=== PATIENT | female | born 1965 ===

== ENCOUNTER 2021-06-06 14:55 | Outpatient (CLI) | payer OTHER | END 2021-06-06 15:00 | disposition home or self-care (01) | LOC: PPH VACUNA 14:55 | PROVIDERS: ATTEND Emergency Medicine Pediatric Emergency Medicine | DX: Z23 Encounter for immunization (principal) ==

== ENCOUNTER 2022-11-22 08:10 | Outpatient (CLI) | payer OTHER | END 2022-11-22 08:37 | disposition home or self-care (01) | LOC: MAMO-SONO 08:10 | PROVIDERS: ATTEND Emergency Medicine Pediatric Emergency Medicine | DX: N64.4 Mastodynia (principal); N94.9 Unspecified condition associated with female genital organs and menstrual cycle ==

== ENCOUNTER 2023-06-06 09:28 | Outpatient (CLI) | payer OTHER | END 2023-06-06 09:31 | disposition home or self-care (01) | LOC: SONOGRAMA 09:28 | DX: K80.00 Calculus of gallbladder with acute cholecystitis without obstruction (principal) ==

== ENCOUNTER 2024-12-23 07:07 | Outpatient (CLI) | payer OTHER | END 2024-12-23 07:15 | disposition home or self-care (01) | LOC: MAMO-SONO 07:07 | DX: N64.4 Mastodynia (principal); N94.9 Unspecified condition associated with female genital organs and menstrual cycle ==

== ENCOUNTER → 2025-01-21 09:57 | Outpatient (CLI) | payer OTHER ==
[~2025-01-21 09:57] MED LIST: AMLODIPINE-OLM1 EAC1 PO; ATORVASTATIN CA40 MG PO; BACTRIM DS TAB1 EACH PO; GLIPIZIDE XL10 MG PO; METFORMIN HCL1000 M2 PO; PEPCID AC20 MG PO; VALSARTAN320 MG PO; VITAMIN D3250 MCG PO
== END | disposition home or self-care (01) ==
LOC: NUCLEAR 09:57
DX: M80.072A Age-related osteoporosis with current pathological fracture, left ankle and foot, initial encounter for fracture (principal)

== ENCOUNTER 2025-01-27 13:26 | Emergency (ER) | payer OTHER ==
[~2025-01-27] VITALS: Ht 157.5 cm; Wt 88.0 kg
[2025-01-27] MEDS ORDERED: GLIPIZIDE XL10 MG PO (14:20)
[2025-01-27] MEDS ORDERED: METFORMIN HCL1000 M2 PO (14:20)
[2025-01-27] MEDS ORDERED: VALSARTAN320 MG PO (14:21)
[2025-01-27] MEDS ORDERED: AMLODIPINE-OLM1 EAC1 PO (14:21)
[2025-01-27] MEDS ORDERED: VITAMIN D3250 MCG PO (14:21)
[2025-01-27] MEDS ORDERED: ATORVASTATIN CA40 MG PO (14:21)
[2025-01-27] MEDS ORDERED: 0.9 % SODIUM CHLORIDE 1,000 ML IV ONE (16:45)
[2025-01-27] MEDS ORDERED: KETOROLAC TROMETHAMINE 30 MG VIAL IV ONE (16:45)
[2025-01-27 17:20] LABS: BASO % 0.6 % (0.1-1.2); EOS # 0.11 (0.04-0.54); EOS % 1.1 % (0.7-7.0); LYMPH # 3.34 (1.18-3.74); LYMPH % 33.2 % (19.3-53.1); MEAN PLATELET VOLUME 8.90 fl (9.4-12.4); MONO # 0.64 (0.24-0.82); MONO % 6.4 % (4.7-12.5); NEUT # 5.88 (1.56-6.13); NEUT % 58.4 % (34.0-71.1); RED CELL DISTRIBUTION WIDTH 12.7 % (11.6-14.4)
[2025-01-27 17:38] LABS: INR 0.96
[2025-01-27 17:54] LABS: ALT/SGPT 25.0 U/L (12-78); AST/SGOT 20.0 U/L (15-37); BILIRUBIN TOTAL 0.57 mg/dL (0.3-1.2); BUN CREA RATIO 11.0 (7.0-25.0); CREATININE SERUM 0.91 mg/dL (0.55-1.02); GFR 62.85; GLOBULINA 4.3 G/DL (2.4-3.5); GLUCOSE FASTING 109.0 mg/dL (65-100); OSMOLALITY SERUM 281.0 MOSM/KG (275-295)
[2025-01-27 18:13] LABS: URINE APPEARANCE Clear; URINE BILIRRUBIN Negative (NEGATIVE); URINE BLOOD Negative; URINE COLOR Yellow; URINE GLUCOSE Negative (NEGATIVE); URINE KETONE Negative (NEGATIVE); URINE LEUKOCYTE Small; URINE NITRATE Negative; URINE PROTEIN 30 (NEGATIVE); URINE UROBILINOGEN 0.2 E.U./dl
[2025-01-27 18:17] LABS: URINE BACTERIA 2123.7 uL (0.0-1933); URINE EPITHELIAL CELLS 45.9 uL (0.0-38.8); URINE WBC 50.4 uL (0.0-23.2)
[2025-01-27 18:29] LABS: URINE CAST 0.29 uL (0.0-1.40); URINE RBC 0.7 uL (0.0-20.8)
[2025-01-27] MEDS ORDERED: BACTRIM DS TAB1 EACH PO (19:51)
[2025-01-27] MEDS ORDERED: PEPCID AC20 MG PO (19:51)
== END 2025-01-27 20:08 | disposition home or self-care (01) ==
LOC: ER 13:26
PROVIDERS: General Practice
DX: R10.31 Right lower quadrant pain (principal); R10.2 Pelvic and perineal pain; I10 Essential (primary) hypertension; E11.9 Type 2 diabetes mellitus without complications; Z79.84 Long term (current) use of oral hypoglycemic drugs
CPT/HCPCS: 36415; 74177; Q9965